=== PATIENT | female | born 1945 | race Hispanic/Latino ===

== ENCOUNTER → 2018-04-12 | Day surgery (SDC) | payer MEDICARE ==
[2018-04-11 08:53] LABS: BASOPHILS % 0.5 % (0.0-1.0); EOSINOPHILS # (AUTO) 0.2 (0.0-0.4); EOSINOPHILS % 1.8 % (0.0-6.0); HEMATOCRIT 40.7 % (34.2-44.1); HEMOGLOBIN 13.5 g/dL (12.0-16.0); LYMPHOCYTES # (AUTO) 2.6 (1.0-3.2); LYMPHOCYTES % 30.4 % (18.0-39.1); MEAN CORPUSCULAR HEMOGLOBIN 30.9 pg (28-32); MEAN CORPUSCULAR HGB CONC 33.2 g/dL (31-35); MEAN CORPUSCULAR VOLUME 93.1 fL (81-99); MONOCYTES # (AUTO) 0.5 (0.2-0.8); MONOCYTES % 6.3 % (4.4-11.3); NEUTROPHILS # (AUTO) 5.1 (2.1-6.9); NEUTROPHILS % 60.8 % (38.7-80.0); PLATELET COUNT 234 x10e3/uL (140-360); RED BLOOD COUNT 4.37 x10e6/uL (3.6-5.1); RED CELL DISTRIBUTION WIDTH 13.7 % (11.7-14.4)
[~2018-04-12] MED LIST: ALIGN4 MG PO; CALCIUM 600 +1 EAC8 PO; FENTANYL CITRATE/PF 100MCG/2 ML INJ ONE; FIBER1 GM PO; HYOSCYAMINE SULFATE 0.5 MG/ML AMP ONE; LINZESS PO; MEPERIDINE HCL INJ 50 MG/ML INJ ONE; MIDAZOLAM HCL 2 MG/2 ML VIAL ONE; OMEPRAZOLE PO; PROBIOTIC & AC1 EACH PO; PROPOFOL IV EMULSION 10 MG/ML 50 ML VIAL ONE; ULTRAM50 MG PO; ZOCOR20 MG PO
--- OUTSIDE RECORDS SUMMARY | 2018-04-12 07:03 | XMS REPORT ---
Author Author [facility] Address Unknown Phone Unavailable Care Team Providers Care Machine Fitter Name Role Phone CALVIN LUO Unavailable Unavailable Problems This patient has no known problems. Allergies, Adverse Reactions, Alerts This patient has no known allergies or adverse reactions. Medications This patient has no known medications. Results Test Description Test Time Test Comments Text Results Atomic Results Result Comments CHEST 2 VIEWS [place] [address] Patient Name: FUAD RICK MR #: [id number] : 1945 Age/Sex: 72/F Req # : [id number] [facility] Physician: Ordered by: CALVIN LUO MD Report #: [id number] Location: OR Room/Bed: Procedure: [id number] DX/CHEST 2 VIEWS Exam Date: 09/12/17 Exam Time: 0940 REPORT STATUS: Signed PROCEDURE: X-RAY CHEST, TWO VIEWS COMPARISON: None. INDICATIONS: PRE OPERATIVE CHEST X-RAY FOR VENTRAL HERNIA REPAIR FINDINGS: LUNGS: No consolidations or edema. PLEURA: No effusions or pneumothorax. HEART T MEDIASTINUM: The heart is within normal size-limits. Atherosclerotic calcification in the aorta. BONES T SOFT TISSUES: No acute findings. Degenerative spurring of the spine. CONCLUSION: No acute thoracic abnormality. Destiny Valdez D.O. Dictated by: Destiny Valdez D.O. on 09/12/2017 at 10: 08 Electronically approved by: Destiny Valdez D.O. on 09/12/2017 at 10: 08 Dictated By: DESTINY VALDEZ DO 1008 Transcribed By: MATTHEW on 09/12/17 1008 COPY TO: CALVIN LUO MD
--- NOTE | 2018-04-12 10:20 | Operative Report ---
DATE OF PROCEDURE: April 12, 2018 REFERRING PHYSICIAN: Dr. Shawanda Loza PROCEDURE PERFORMED: Colonoscopy and polypectomy with biopsies. INDICATIONS FOR COLONOSCOPY: Colorectal cancer screening, personal history of colon polyps. MEDICATION: Patient was done under MAC. Please see anesthesiologist's note. PROCEDURE: With the patient in the left lateral decubitus position, the flexible fiberoptic Olympus colonoscope was inserted into the rectum with ease and advanced all the way to the cecum. The mucosa overlying the cecal pouch was intensely erythematous and that was biopsied. Diverticular disease was scattered. It was more pronounced in the left colon. In the transverse colon, 2 polyps were snared and 1 polyp was hot biopsied. There was a focal area of diverticulitis in the proximal sigmoid colon. One polyp was hot biopsied from the sigmoid colon. The rectum grossly appeared to be within normal limits. The scope was then retroflexed into the distal rectum, and the area around the dentate line appeared to be within normal limits. The scope was then straightened out. It was subsequently withdrawn. Patient tolerated the procedure well. IMPRESSION 1. Cecal pouch, mucosa intensely erythematous and biopsied. 2. Transverse colon polyps times 3, 2 snared and 1 hot biopsied. 3. Diverticulosis. 4. Focal diverticulitis in sigmoid colon. 5. Sigmoid colon polyp, hot biopsied. PLAN: Follow up histology. Initiate Flagyl 500 mg 1 p.o. q.6 h. times 14 days and Levaquin 500 mg 1 p.o. daily times 14 days. Patient will need a followup colonoscopy in 3 years. Job#: [id number] RI cc:SHAWANDA LOZA MD
== END | disposition home or self-care (01) ==
LOC: OR 07:02
PROVIDERS: ATTEND Internal Medicine Gastroenterology
DX: Z12.11 Encounter for screening for malignant neoplasm of colon (principal); D12.3 Benign neoplasm of transverse colon; D12.5 Benign neoplasm of sigmoid colon; K63.89 Other specified diseases of intestine; K57.32 Diverticulitis of large intestine without perforation or abscess without bleeding; K58.9 Irritable bowel syndrome, unspecified; K59.00 Constipation, unspecified; K21.9 Gastro-esophageal reflux disease without esophagitis; R03.0 Elevated blood-pressure reading, without diagnosis of hypertension; E78.5 Hyperlipidemia, unspecified; M19.90 Unspecified osteoarthritis, unspecified site; I44.0 Atrioventricular block, first degree; F17.210 Nicotine dependence, cigarettes, uncomplicated; Z01.810 Encounter for preprocedural cardiovascular examination; Z01.812 Encounter for preprocedural laboratory examination; Z68.33 Body mass index [BMI] 33.0-33.9, adult; Z87.01 Personal history of pneumonia (recurrent)
CPT/HCPCS: 36415; 45380; 45384; 45385; 85025; 93005; J1980; J2175; J2250; 45378

== ENCOUNTER 2018-09-08 09:28 | Emergency (ER) | payer MEDICARE ==
[~2018-09-08] VITALS: Ht 162.6 cm; Wt 104.3 kg
[~2018-09-08 09:28] MED LIST changes: -FENTANYL CITRATE/PF 100MCG/2 ML INJ ONE; -HYOSCYAMINE SULFATE 0.5 MG/ML AMP ONE; -MEPERIDINE HCL INJ 50 MG/ML INJ ONE; -MIDAZOLAM HCL 2 MG/2 ML VIAL ONE; -PROPOFOL IV EMULSION 10 MG/ML 50 ML VIAL ONE
--- OUTSIDE RECORDS SUMMARY | 2018-09-08 09:32 | XMS REPORT ---
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
--- OUTSIDE RECORDS SUMMARY | 2018-09-08 09:32 | XMS REPORT ---
Author Author Paty Grewal [facility] e[employer] Address Unknown Phone Unavailable Care Team Providers Care Athletics Teacher Name Role Phone Paty Grewal Unavailable Allergies, Adverse Reactions, Alerts Substance Reaction Event Type N.K.D.A. 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 Z79.891 Active Medications Medication Code System Code Instructions Start Date End Date Status Dosage Align ND 09304888460 4 MG Orally once a day Active 1 capsule Omeprazole NDC 09157304857 40 MG Orally Once a day Active 1 capsule Glucosamine Chondr 500 Complex NDC 69566170890 Orally once a day Active 1 capsule Simvastatin NDC 35168135887 20 MG Orally Once a day Active 1 tablet in the evening Motrin NDC 0 300 MG Orally Active as directed Tramadol NDC 0 50 mg orally every 4-6 hours prn pain Active one tab Voltaren Gel NDC 0 1% Transdermal Four times a day Active apply to affected area Tylenol Arthritis Pain NDC 18782594837 650 MG Orally prn Active 2 tablets as needed Albuterol Sulfate NDC 08544842977 Active not defined Vital Signs Date/Time: February 24, 2018 BMI 32.61 Index Weight 190 lbs Height 64 in Temperature 97.8 F Cardiac Monitoring Heart Rate 68 /min Blood Pressure Diastolic 78 mm Hg Blood Pressure Systolic 128 mm Hg Results Name Result Date Reference Range Unit Abnormality Flag PAIN MGMT,TRICYCLIC ANTI DEPRESS,QN,W/medMATCH,U ----medMATCH Amitriptyline CONSISTENT 20180224 ----Nortriptyline NEGATIVE 20180224 <100 ng/mL ----medMATCH Nortriptyline CONSISTENT 20180224 ----Prescribed Drug 1 Tramadol 20180224 ----Amitriptyline NEGATIVE 74346630 <100 ng/mL PAIN MGMT, GABAPENTIN, QN,W/medMATCH,U ----Prescribed Drug 1 Tramadol 20180224 ----medMATCH Gabapentin CONSISTENT 20180224 ----Gabapentin NEGATIVE 68705778 <1000 ng/mL PAIN MGMT, FENTANYL, QN,W/medMATCH,U ----medMATCH Norfentanyl CONSISTENT 20180224 ----Prescribed Drug 1 Tramadol 20180224 ----Fentanyl NEGATIVE 26323111 <0.5 ng/mL ----medMATCH Fentanyl CONSISTENT 20180224 ----Norfentanyl NEGATIVE 80425744 <0.5 ng/mL PAIN MGMT, CARISOPRODOL METAB,QN,W/medMATCH,U ----Meprobamate NEGATIVE 68504620 <1000 ng/mL ----medMATCH Meprobamate CONSISTENT 20180224 ----Prescribed Drug 1 Tramadol 20180224 ZOLPIDEM, QUANTITATIVE, URINE ----ZOLPIDEM METABOLITE NEGATIVE 14589659 <5 ng/mL ----ZOLPIDEM NEGATIVE 93352792 <5 ng/mL PAIN MANAGEMENT PROFILE 1 W/CONF, W/DL, URINE ----Prescribed Drug 1 Tramadol 20180224 ----Creatinine 131.7 79255619 > or=20.0 mg/dL ----pH 6.50 06853215 4.5 - 9.0 ----medMATCH Barbiturates CONSISTENT 20180224 ----Benzodiazepines NEGATIVE 77672087 <100 ng/mL ----Oxycodone NEGATIVE 31673483 <100 ng/mL ----medMATCH Opiates CONSISTENT 20180224 ----Oxidant NEGATIVE 24511628 <200 mcg/mL ----Opiates NEGATIVE 59035460 <100 ng/mL ----Amphetamines NEGATIVE 26925872 <500 ng/mL ----medMATCH Methadone Metab CONSISTENT 20180224 ----medMATCH Amphetamines CONSISTENT 20180224 ----Methadone Metabolite NEGATIVE 18695299 <100 ng/mL ----Barbiturates NEGATIVE 54962436 <300 ng/mL ----medMATCH Phencyclidine CONSISTENT 20180224 ----medMATCH Benzodiazepines CONSISTENT 20180224 ----medMATCH Oxycodone CONSISTENT 20180224 ----Marijuana Metabolite NEGATIVE 23602718 <20 ng/mL ----Phencyclidine NEGATIVE 87714466 <25 ng/mL ----medMATCH Marijuana Metab CONSISTENT 20180224 ----Cocaine Metabolite NEGATIVE 03605580 <150 ng/mL ----medMATCH Cocaine Metab CONSISTENT 20180224 PAIN MGMT, TRAMADOL, QN,W/medMATCH,U ----medMATCH Tramadol INCONSISTENT 20180224 ----Tramadol NEGATIVE 58026929 <100 ng/mL ----medMATCH Desmethyltram INCONSISTENT 20180224 ----Desmethyltramadol NEGATIVE 24685796 <100 ng/mL ----Prescribed Drug 1 Tramadol 20180224 PAIN MGMT, PREGABALIN, QN,W/medMATCH,U ----medMATCH Pregabalin CONSISTENT 20180224 ----Pregabalin NEGATIVE 48723125 <1000 ng/mL ----Prescribed Drug 1 Tramadol 20180224 Summary Purpose eClinicalWorks Submission
--- OUTSIDE RECORDS SUMMARY | 2018-09-08 09:32 | XMS REPORT ---
Author Author Fred Navas Organization [employer] Address Unknown Phone Unavailable Care Team Providers Care Stonework Supervisor Name Role Phone Fred Navas CP Unavailable [...]
--- OUTSIDE RECORDS SUMMARY | 2018-09-08 09:32 | XMS REPORT ---
Author Author Paty Grewal Organization [employer] Address Unknown Phone Unavailable Care Team Providers Care Cardiac Rehabilitation Program Director Name Role Phone Paty Grewal CP Unavailable Allergies, Adverse Reactions, Alerts Substance Reaction Event Type N.K.D.A. 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 Active Assessment Muscle pain M79.1 Active Medications Medication Code System Code Instructions Start Date End Date Status Dosage Albuterol Sulfate [facility] [address]-24 Active not defined Tramadol NDC 0 50 mg orally every 4-6 hours prn pain Active one tab Omeprazole [facility] [address]-05 40 MG Orally Once a day Active [address] [facility] [address]-63 20 MG Orally Once a day Active 1 tablet in the evening Glucosamine Chondr [address] [facility] [address] Orally once a day Active 1 [place] [address]-71 650 MG Orally prn Active 2 tablets as needed Voltaren Gel NDC 0 1% Transdermal Four times a day Active apply to affected area Align [facility] [address] 4 MG Orally once a day Active 1 capsule Vital Signs Date/Time: Aug 19, 2017 BMI 34.01 Index Weight 192 lbs Height 63 in Temperature 98.1 F Cardiac Monitoring Heart Rate 64 /min Blood Pressure Diastolic 66 mm Hg Blood Pressure Systolic 128 mm Hg Results No Known Results Summary Purpose eClinicalWorks Submission
--- OUTSIDE RECORDS SUMMARY | 2018-09-08 09:32 | XMS REPORT | Continuity of Care Document ---
Author Author [facility] Interface Address Unknown Phone Unavailable Problems Problem Status Onset Date Classification Date Reported Comments Source Body mass index 30+ - obesity 05/17/2018 Diagnosis 05/17/2018 [facility] Elevated blood-pressure reading without diagnosis of hypertension 05/17/2018 Diagnosis 05/17/2018 [facility] Acute urticaria 05/17/2018 Diagnosis 05/17/2018 [facility] Cigarette smoker 05/17/2018 Diagnosis 05/17/2018 [facility] Body Mass Index 30+ - Obesity 05/17/2018 Problem 05/17/2018 [facility] Acute Urticaria 05/17/2018 Problem 05/17/2018 [facility] Elevated Blood-pressure Reading without Diagnosis of Hypertension 05/17/2018 Problem 05/17/2018 [facility] Cigarette Smoker 05/17/2018 Problem 05/17/2018 [facility] Acute bronchitis 11/01/2017 Diagnosis 11/02/2017 [facility] Acute upper respiratory infection 04/26/2017 Diagnosis 04/26/2017 [facility] Pain in throat 04/26/2017 Diagnosis 04/26/2017 [facility] Feeling feverish 04/26/2017 Diagnosis 04/26/2017 [facility] Acute lower respiratory tract infection 12/22/2016 Diagnosis 12/22/2016 [facility] Acute pharyngitis 12/22/2016 Diagnosis 12/22/2016 [facility] Muscle pain Active Problem 03/07/2018 [facility] Primary osteoarthritis, left ankle and foot Active Problem 03/07/2018 Xander Navas Back pain Active Problem 03/07/2018 Xander Navas Osteoarthritis of spine at multiple levels Active Problem 03/07/2018 Xander Navas [facility] use of opiate analgesic Active Diagnosis 03/02/2018 Xander Navas Medications Medication Details Route Status Patient Instructions Ordering Provider Order Date Source Albuterol Sulfate not defined NA Active [facility] Tramadol one tab orally Active 50 mg orally every 4-6 hours prn pain [facility] Omeprazole 1 capsule Orally Active 40 MG Orally Once a day [facility] Simvastatin 1 tablet in the evening Orally Active 20 MG Orally Once a day [facility] Navsa Glucosamine Chondr 500 Complex 1 capsule Orally Active Orally once a day [facility] Tylenol Arthritis Pain 2 tablets as needed Orally Active 650 MG Orally prn [facility] Voltaren Gel apply to affected area Transdermal Active 1% Transdermal Four times a day [facility]as Align 1 capsule Orally Active 4 MG Orally once a day [facility] Align 1 capsule Orally Active 4 MG Orally once a day [facility] Omeprazole 1 capsule Orally Active 40 MG Orally Once a day [facility] Glucosamine Chondr 500 Complex 1 capsule Orally Active Orally once a day [facility] Martinser Simvastatin 1 tablet in the evening Orally Active 20 MG Orally Once a day [facility] Motrin as directed Orally Active 300 MG Orally [facility] Tylenol Arthritis Pain 2 tablets as needed Orally Active 650 MG Orally prn [facility]as Albuterol Sulfate not defined NA Active [facility] X[facility] Navas Brompheniramine Maleate 0.4 MG/ML / Dextromethorphan Hydrobromide 2 MG/ML / Pseudoephedrine Hydrochloride 6 MG/ML Oral Solution [Bromfed DM] Bromfed DM 2 mg-30 mg-10 mg/5 mL syrup Take 5 mL every 6-8 hours by oral route as needed for 6 days. Active [facility] Omeprazole 20 MG Delayed Release Oral Capsule omeprazole 20 mg capsule,delayed release TK ONE C PO D Active [facility] Simvastatin 20 MG Oral Tablet simvastatin 20 mg tablet TK 1 T PO QD Active [facility] Simvastatin 40 MG Oral Tablet simvastatin 40 mg tablet TK 1 T PO QD IN THE EVENING Active [facility] Acetaminophen 300 MG / Codeine Phosphate 30 MG Oral Tablet acetaminophen 300 mg-codeine 30 mg tablet TK 1 TO 2 TS PO Q 4 TO 6 H PRN P Active [facility] Albuterol 0.83 MG/ML Inhalant Solution albuterol sulfate 2.5 mg/3 mL (0.083 %) solution for nebulization Inhale 3 mL 3 times a day by nebulization route as needed. Active [facility] Azithromycin 250 MG Oral Tablet azithromycin 250 mg tablet TAKE 2 TABLETS (500 MG) BY ORAL ROUTE ONCE DAILY FOR 1 DAY THEN 1 TABLET (250 MG) BY ORAL ROUTE ONCE DAILY FOR 4 DAYS Active [facility] benzonatate 200 MG Oral Capsule benzonatate 200 mg capsule Take 1 capsule 3 times a day by oral route as needed. Active [facility] 0.5 ML influenza A virus A/[place] (H1N1) antigen 0.12 MG/ML / influenza A virus A/[place] (H3N2) antigen 0.12 MG/ML / influenza B virus B/[place] antigen 0.12 MG/ML Prefilled Syringe [Fluzone [id number]] Fluzone High-Dose [id number] (PF) 180 mcg/0.5 mL intramuscular syringe ADM 0.5ML IM UTD Active [facility] tramadol hydrochloride 50 MG Oral Tablet tramadol 50 mg tablet TK 1 T PO BID Active [facility] Diclofenac Sodium 0.01 MG/MG Topical Gel [Voltaren] Voltaren 1 % topical gel ROSIO AA QID Active [facility] Triamcinolone Acetonide 1 MG/ML Topical Cream triamcinolone acetonide 0.1 % topical cream APPLY A THIN LAYER TO THE AFFECTED AREA(S) BY TOPICAL ROUTE 2 TIMES PER DAY X 7 DAYS Active [facility] Amoxicillin 875 MG Oral Tablet amoxicillin 875 mg tablet Take 1 tablet every 12 hours by oral route as directed for 10 days. Active [facility] 200 ACTUAT Albuterol 0.09 MG/ACTUAT Metered Dose Inhaler [ProAir] ProAir HFA 90 mcg/actuation aerosol inhaler Inhale 2 puffs every 4-6 hours by inhalation route as needed. Active [facility] Allergies, Adverse Reactions, Alerts Substance Category Reaction Severity Reaction type Status Date Reported Comments Source N.K.D.A. Adverse Reaction Info Not Available Adverse Reaction Active 02/24/2018 [facility] Navas Immunizations Immunization Date Given Site Status Last Updated Comments Source influenza, unspecified formulation 08/14/2017 completed [facility] influenza, injectable, quadrivalent 2016 completed [facility] Tdap 11/14/2008 completed [facility] Results Order Name Results Value Reference Range Date Interpretation Comments Source Influenza A negative 11/01/2017 [facility] Influenza B negative 11/01/2017 [facility] Influenza A negative 04/26/2017 [facility] Influenza B negative 04/26/2017 [facility] RESULT negative 04/26/2017 [facility] SWAB LOCATION Left and Right tonsillar pillars 04/26/2017 [facility] Influenza A negative 12/22/2016 [facility] Influenza B negative 12/22/2016 [facility] RESULT negative 12/22/2016 [facility] SWAB LOCATION Left and Right tonsillar pillars 12/22/2016 [facility] Vital Signs Vital Sign Value Date Comments Source Diastolic (mm Hg) 60 05/17/2018 [facility] Height 64 05/17/2018 [facility] Systolic (mm Hg) 128 05/17/2018 [facility] Weight 185 05/17/2018 [facility] Weight 190 02/24/2018 [facility] Nav[facility] Height 64 02/24/2018 [facility] Nav[facility] Temperature Oral (F) 97.8 F 02/24/2018 [facility] Nav[facility] Heart Rate 68 02/24/2018 [facility] Navas Diastolic (mm Hg) 78 02/24/2018 [facility] Nav[facility] Systolic (mm Hg) 128 02/24/2018 Xander Navas Diastolic (mm Hg) 74 11/01/2017 [facility] Height 64 11/01/2017 [facility] Systolic (mm Hg) 130 11/01/2017 [facility] Weight 185 11/01/2017 [facility] Weight 192 08/19/2017 Xander Navas Height 63 08/19/2017 Xander Navas Temperature Oral (F) 98.1 F 08/19/2017 [facility] Heart Rate 64 08/19/2017 [facility] Nav[facility] Diastolic (mm Hg) 66 08/19/2017 Xander Navas Systolic (mm Hg) 128 08/19/2017 Xander Navas Diastolic (mm Hg) 80 04/26/2017 [facility] Height 64 04/26/2017 [facility] Systolic (mm Hg) 122 04/26/2017 [facility] Weight 185 04/26/2017 [facility] Diastolic (mm Hg) 88 12/22/2016 [facility] Height 64 12/22/2016 [facility] Systolic (mm Hg) 136 12/22/2016 [facility] Weight 185 12/22/2016 [facility] Encounters Location Location Details Encounter Type Encounter Number Reason For Visit Attending Provider ADM Date DC Date Status Source [place] - [facility] - [id number] Ross-C: [address] [place] [address], Ph. [id number] Vikash Jena 12/22/2016 [facility] [place] [facility] - [id number] Vikash Bella, PANTOGRAPH I ENGRAVER-C: [address] [place] [address], Ph. [id number] Vikash Bella 04/26/2017 [facility] [place] [facility] - [id number] Jessiejulieta Nance, PANTOGRAPH I ENGRAVER-C: [address] [place] [address], Ph. [id number] Jessie Nance 11/01/2017 [facility] [place] - [facility] - [id number] Jessie Nance, PANTOGRAPH I ENGRAVER-C: [address] [place] [address], Ph. [id number] Jessie Nance 05/17/2018 [facility] Procedures Procedure Code Date Perfomer Comments Source mammogram, screening 12/22/2016 [facility] Hysterectomy [facility]
--- OUTSIDE RECORDS SUMMARY | 2018-09-08 09:33 | XMS REPORT | Encounter Summary ---
Author Organization Unknown Address [address] [place] [address] Phone [phone] Care Team Providers Care Feature Writer Name Role Phone Shawanda Garcia 3 [phone] Reason for Visit Medical Complaint Instructions 1. Acute bronchitis bronchitis: care instructions amoxicillin 875 mg tablet ProAir HFA 90 mcg/actuation aerosol inhaler Bromfed DM 2 mg-30 mg-10 mg/5 mL syrup rapid flu (A+B) call back, wheezing 2. Cigarette smoker Discussion Note Pt is in NAD; Verbalizes understanding of all instructions with no questions at this time. Plan of Care Patient Instructions Start Bromfed DM for cough. Start ProAir Inhalers 2 puffs every 4-6 hrs as needed for shortness of breath/wheezing. Alternate with albuterol nebulizer as directed. If no improvement of symptoms in 4-5 days, start antibiotics as directed. Take medications as prescribed and follow up with a PCP within 2-3 if symptoms worsen as discussed. In case of emergency call 911 or go to nearest ER. I recommend smoking cessation. Reminders Provider Appointments None recorded. Lab Rapid Flu (A+B) 11/01/2017 [facility] Referral None recorded. Procedures None recorded. Surgeries None recorded. Imaging None recorded. Medications Name Start Date amoxicillin 875 mg tablet Take 1 tablet every 12 hours by oral route as directed for 10 days. Bromfed DM 2 mg-30 mg-10 mg/5 mL syrup Take 5 mL every 6-8 hours by oral route as needed for 6 days. omeprazole 20 mg capsule,delayed release TK ONE T PO QD ProAir HFA 90 mcg/actuation aerosol inhaler Inhale 2 puffs every 4-6 hours by inhalation route as needed. simvastatin 20 mg tablet TK 1 T PO QD Medications Administered None recorded. Vitals Height Weight BMI Blood Pressure 5 ft 4 in 185 lbs 31.8 kg/m2 130/74 mm[Hg] Lab Results Date Name Specimen Result Interpretation Description Value Range Status Address Rapid Flu (A+B) Influenza a negative [facility]: [address] [facility] Influenza B negative [facility]: [address] [facility] Allergies Code Code System Name Reaction Severity Status Onset NKDA Problems None recorded. Procedures Date Name Performed by Hysterectomy Information not available Information not available Vaccine List Vaccine Type influenza, injectable, quadrivalent 2016 Tdap 11/14/2008 Social History Smoking Status Current Every Day Smoker Past Encounters 11/01/2017 Acute Bronchitis; Cigarette Smoker Jessie Goyo, [facility]-C: [address] [place] [address], Ph. History of Present Illness Cough Reported By: Patient HPI: Location: chest, nasal/sinus. Quality: congested, dry cough. Duration: 4 days. Severity: moderate. Onset/Timing: gradual. Context: no sick contacts, no foreign travel, smoker. Modifying factors: ; Bromfed DM and albuterol neb [place] with mild relief. Associated Symptoms: no sputum production, no sweats, no significant weight gain, no significant weight loss, no morning cough, no sore throat, no vomiting, no diarrhea, no rash, no nausea, no fever/chills, no muscle aches, no headache, shortness of breath, wheezing; post nasal drip, moderate chest congestion, and persistent dry cough Review of Systems:ROS as noted in the HPI Review of Systems Basic Reported By: Patient Physical Exam Adult Basic, Adult Female Complete Reported By: Patient Constitutional: General Appearance: healthy-appearing, well-nourished, well-developed. Level of Distress: NAD. Ambulation: ambulating normally Psychiatric: Mental Status: active and alert Eyes: Lids and Conjunctivae: non-injected, no discharge, no pallor Vmm-Cioa-Drhhp-Throat: Ears: no lesions on external ear, no outer ear tenderness, EACs clear, TMs clear. Hearing: no hearing loss. Nose: no lesions on external nose, post nasal drip. Lips, Teeth, and Gums: no mouth or lip ulcers, no bleeding gums, poor dentition. Oropharynx: moist mucous membranes, no erythema, no exudates, tonsils not enlarged Neck: Lymph Nodes: no cervical LAD Lungs: Respiratory effort: no dyspnea, no tachypnea, no use of accessory muscles, no intercostal retractions. Auscultation: expiratory wheezing, wet rales/crackles Cardiovascular: Heart Auscultation: RRR, no murmurs Neurologic: Gait and Station: normal gait, normal station
--- OUTSIDE RECORDS SUMMARY | 2018-09-08 09:33 | XMS REPORT | Encounter Summary ---
Author Organization Unknown Address [address] [place] [address] Phone [phone] Reason for Visit Medical Complaint Instructions 1. Acute lower respiratory tract infection azithromycin 250 mg tablet benzonatate 200 mg capsule albuterol sulfate 2.5 mg/3 mL (0.083 %) solution for nebulization rapid flu (A+B) 2. Acute pharyngitis sore throat: care instructions rapid strep group A, throat Discussion Note Pt is aaox3 and in NAD; verbalizes understanding of all instructions and has no further questions at this time Plan of Care Patient Instructions Take medications as prescribed and discussed; follow up with your PCP within 2-3 days or sooner should symptoms worsen Reminders Provider Appointments None recorded. Lab Rapid Flu (A+B) 12/22/2016 [facility] Rapid Strep Group a, Throat 12/22/2016 [facility] Referral None recorded. Procedures None recorded. Surgeries None recorded. Imaging None recorded. Medications Name Start Date acetaminophen 300 mg-codeine 30 mg tablet TK 1 TO 2 TS PO Q 4 TO 6 H PRN P albuterol sulfate 2.5 mg/3 mL (0.083 %) solution for nebulization Inhale 3 mL 3 times a day by nebulization route as needed. azithromycin 250 mg tablet TAKE 2 TABLETS (500 MG) BY ORAL ROUTE ONCE DAILY FOR 1 DAY THEN 1 TABLET (250 MG) BY ORAL ROUTE ONCE DAILY FOR 4 DAYS benzonatate 200 mg capsule Take 1 capsule 3 times a day by oral route as needed. Fluzone High-Dose [id number] (PF) 180 mcg/0.5 mL intramuscular syringe ADM 0.5ML IM UTD omeprazole 20 mg capsule,delayed release TK 1 C PO QD simvastatin 20 mg tablet TK 1 T PO QD simvastatin 40 mg tablet TK 1 T PO QD IN THE EVENING tramadol 50 mg tablet TK 1 T PO BID Voltaren 1 % topical gel ROSIO AA QID Medications Administered None recorded. Vitals Height Weight BMI Blood Pressure 5 ft 4 in 185 lbs 31.8 136/88 Lab Results Date Name Result Description Value Range Status Rapid Flu (A+B) Influenza a negative Influenza B negative Rapid Strep Group a, Throat Result negative Swab Location Left and Right tonsillar pillars Allergies Name Reaction Severity Onset NKDA Problems None recorded. Procedures Date Name Performed by 12/22/2016 Mammogram, Screening Information not available Vaccine List Vaccine Type Tdap 11/13/2008 Social History Smoking Status Never Smoker Past Encounters 12/22/2016 Acute Lower Respiratory Tract Infection; Acute Pharyngitis Vikash Bella, [facility]-C: [address] [place] [address], Ph. History of Present Illness Cqqhwpe-Rlbym-Uln Reported By: Patient HPI: Quality: cannot identify. Duration: 2-3 days. Severity: subjective temperature, same. Onset/Timing: first recorded 3 days ago. Context: no tick/insect bites, no recent travel, no new medications, ill contacts. Associated Symptoms: no fever/chills, no rash, no lethargy, headache, muscle aches, cold symptoms, tired (fatigue), cough, nasal passage blockage (stuffiness). Modifying Factors nothing gives relief Review of Systems:ROS as noted in the HPI Review of Systems Basic Reported By: Patient Physical Exam Adult Basic, Adult Female Complete Reported By: Patient Constitutional: General Appearance: healthy-appearing, well-nourished, well-developed. Level of Distress: NAD. Ambulation: ambulating normally Psychiatric: Mental Status: active and alert. Orientation: to time, to place, to person Uek-Rnrf-Xaxoc-Throat: Ears: no lesions on external ear, no outer ear tenderness, EACs clear, TMs clear. Hearing: no hearing loss. Nose: no lesions on external nose, nares patent, no septal deviation, nasal passages clear, no sinus tenderness, nasal discharge--rhinorrhea, post nasal drip. Lips, Teeth, and Gums: no mouth or lip ulcers, no bleeding gums, normal dentition. Oropharynx: moist mucous membranes, no exudates, tonsils not enlarged, erythema Neck: Lymph Nodes: no cervical LAD, no supraclavicular LAD Lungs: Respiratory effort: no dyspnea, no tachypnea, no use of accessory muscles, no intercostal retractions. Auscultation: expiratory wheezing, wet rales/crackles, rales / crackles on the left, rales/crackles on the right Cardiovascular: Heart Auscultation: RRR, no murmurs Neurologic: Gait and Station: normal gait, normal station
--- OUTSIDE RECORDS SUMMARY | 2018-09-08 09:33 | XMS REPORT | Encounter Summary ---
Author Organization Unknown Address [address] [place] [address] Phone [phone] Reason for Visit Medical Complaint Instructions 1. Acute upper respiratory infection upper respiratory infection (cold): care instructions Bromfed DM 2 mg-30 mg-10 mg/5 mL syrup 2. Pain in throat rapid strep group A, throat 3. Feeling feverish rapid flu (A+B) Discussion Note: None recorded. Plan of Care Patient Instructions take bromfed as needed. it can cause drowsiness. do not drive will on this medication. follow up pcp advised to contact office in 4-5 days if not better. Reminders Provider Appointments None recorded. Lab Rapid Strep Group a, Throat 04/26/2017 [facility] Rapid Flu (A+B) 04/26/2017 [facility] Referral None recorded. Procedures None recorded. Surgeries None recorded. Imaging None recorded. Medications Name Start Date Bromfed DM 2 mg-30 mg-10 mg/5 mL syrup Take 10 mL every 4 hours by oral route as needed. omeprazole 20 mg capsule,delayed release TK ONE T PO QD simvastatin 20 mg tablet TK 1 T PO QD simvastatin 40 mg tablet TK 1 T PO QD IN THE EVENING Medications Administered None recorded. Vitals Height Weight BMI Blood Pressure 5 ft 4 in 185 lbs 31.8 kg/m2 122/80 mm[Hg] Lab Results Date Name Specimen Result Interpretation Description Value Range Status Address Rapid Flu (A+B) Influenza a negative [facility]: [address] [place] [address] Influenza B negative [facility]: [address] [place] [address] Rapid Strep Group a, Throat Result negative [facility]: [address] [place] [address] Swab Location Left and Right tonsillar pillars [facility]: [address] [place] [address] Allergies Code Code System Name Reaction Severity Onset NKDA Problems None recorded. Procedures Date Name Performed by Hysterectomy Information not available Information not available Vaccine List Vaccine Type influenza, injectable, quadrivalent 07/31/2016 Tdap 11/13/2008 Social History Smoking Status Never Smoker Past Encounters 04/26/2017 Acute Upper Respiratory Infection; Pain in Throat; Feeling Feverish Vikash Bella, [facility]-C: [address] [facility], [place] [address], Ph. History of Present Illness Gxhhp-Zywnsulguf-Igbqtix Reported By: Patient HPI: Location: head/sinuses, throat. Quality: productive cough, nasal/sinus congestion, dry cough. Duration: 3days. Severity: moderate. Onset/Timing: gradual. Context: no sick contacts, no foreign travel, non-smoker, allergies. Modifying factors: OTC medication. Associated Symptoms: no shortness of breath, no wheezing, no change in number of pillows needed to sleep at night, no sweats, no significant weight gain, no significant weight loss, no morning cough, no vomiting, no diarrhea, no rash, no nausea, no fever, no muscle aches, no headache, yellow sputum, sore throat Review of Systems:ROS as noted in the HPI Review of Systems Basic Reported By: Patient Physical Exam Adult Basic, Adult Female Complete Reported By: Patient Constitutional: General Appearance: healthy-appearing, well-nourished, well-developed. Level of Distress: NAD. Ambulation: ambulating normally Psychiatric: Mental Status: active and alert Eyes: Lids and Conjunctivae: non-injected, no discharge Vlt-Myjg-Usbkv-Throat: Ears: no lesions on external ear, no outer ear tenderness, EACs clear, TMs clear. Hearing: no hearing loss. Nose: no lesions on external nose, nasal discharge--purulent; congestion. Lips, Teeth, and Gums: no mouth or lip ulcers. Oropharynx: moist mucous membranes, no erythema, no exudates, tonsils not enlarged Neck: Neck: trachea midline. Lymph Nodes: no cervical LAD Lungs: Respiratory effort: no dyspnea, no tachypnea, no use of accessory muscles, no intercostal retractions. Auscultation: breath sounds normal Cardiovascular: Heart Auscultation: RRR, no murmurs
--- OUTSIDE RECORDS SUMMARY | 2018-09-08 09:33 | XMS REPORT | Encounter Summary ---
Author Organization Unknown Address [address] [place] [address] Phone [phone] Care Team Providers Care Labor Arbitrator Hearing Office Name Role Phone Shawanda Garcia 3 [phone] Reason for Visit Medical Complaint Instructions 1. Acute urticaria triamcinolone acetonide 0.1 % topical cream 2. Cigarette smoker stopping smoking: care instructions 3. Elevated blood-pressure reading without diagnosis of hypertension elevated blood pressure: care instructions 4. Body mass index 30+ - obesity body mass index: care instructions Discussion Note Pt is in NAD; Verbalizes understanding of all instructions with no questions at this time. Plan of Care Patient Instructions Stop calcium supplements. Take zyrtec or benadryl over the counter as per package insert for itching. Do not drive or operate machinery while on this medication. Use topical steroid as directed. Take medications as prescribed and follow up with a PCP or spinning room worker within 2-3 if symptoms worsen as discussed. In case of emergency: worsening swelling, difficulty breathing, or shortness of breath call 911 or go to nearest ER. Recommend monitor BP at home and document, bring BP log to PCP for review. Recommend follow a low sodium diet and exercise 30-45 mins/d 3-4 days a week. I recommend smoking cessation. Reminders Provider Appointments None recorded. Lab None recorded. Referral None recorded. Procedures None recorded. Surgeries None recorded. Imaging None recorded. Medications Name Start Date omeprazole 20 mg capsule,delayed release TK ONE C PO D simvastatin 20 mg tablet TK 1 T PO QD triamcinolone acetonide 0.1 % topical cream APPLY A THIN LAYER TO THE AFFECTED AREA(S) BY TOPICAL ROUTE 2 TIMES PER DAY X 7 DAYS Medications Administered None recorded. Vitals Height Weight BMI Blood Pressure 5 ft 4 in 185 lbs 31.8 kg/m2 (1) 130/70 mm[Hg] (2) 128/60 mm[Hg] Lab Results None recorded. Allergies Code Code System Name Reaction Severity Status Onset NKDA Problems Name Status Onset Date Source Body Mass Index 30+ - Obesity Active 05/17/2018 Acute Urticaria Active 05/17/2018 Elevated Blood-pressure Reading without Diagnosis of Hypertension Active 05/17/2018 Cigarette Smoker Active 05/17/2018 Procedures Date Name Performed by Hysterectomy Information not available Information not available Vaccine List Vaccine Type influenza, injectable, quadrivalent 2016 influenza, unspecified formulation 08/14/2017 Tdap 11/14/2008 Social History Smoking Status Current Every Day Smoker Past Encounters 05/17/2018 Acute Urticaria; Cigarette Smoker; Elevated Blood-pressure Reading without Diagnosis of Hypertension; Body Mass Index 30+ - Obesity Jessie Nance, [facility]-C: [address] [facility], [place] [address], Ph. History of Present Illness Eaxt-Zmblmzm-Xtala-Skin Lesion-Bite 1 Reported By: Patient HPI: Location: neck, chest, arms, legs. Quality: not painful, itchy, red, multiple, generalized. Severity: worsening, moderate. Duration: has noted for 1-2 weeks. Onset/Timing: gradual onset. Context: no new detergents or skin products, no one else with similar rash, no sting or bite, scratching; rash developed after re- starting calcium supplements. Aggravating factors: nothing makes it worse. Alleviating factors: nothing gives relief. Associated Symptoms: no fever/chills, no muscle aches, no headache, no cold symptoms, no nausea, no vomiting, no diarrhea, no urinary symptoms Note:
Review of Systems Basic Reported By: Patient Constitutional: Constitutional: no fever Eyes: Eyes: no eye complaints Aklr-Evzq-Enriv-Throat: Ears: no ear complaints. Nose: no nose/sinus problems. Mouth/Throat: no sore throat, no bleeding gums, no mouth complaints, no teeth problems Cardiovascular: Cardiovascular: no chest pain, no shortness of breath, no known heart murmur Respiratory: Respiratory: no cough, no wheezing, no shortness of breath Gastrointestinal: Gastrointestinal: no abdominal pain, no vomiting / diarrhea Genitourinary: Genitourinary: no urinary complaints, no discharge Musculoskeletal: Musculoskeletal: no muscle aches, no muscle weakness, no arthralgias/joint pain, no back pain Skin: Skin: no abnormal / changing mole, no jaundice, rash, itching Neurologic: Neurologic: no loss of consciousness, no weakness, no numbness, no seizures, no dizziness, no headaches Physical Exam Adult Basic, Adult Female Complete Reported By: Patient Constitutional: General Appearance: obese. Level of Distress: NAD. Ambulation: ambulating normally Psychiatric: Mental Status: active and alert. Orientation: to time, to place, to person Eyes: Lids and Conjunctivae: non-injected, no discharge Neck: Neck: supple. Lymph Nodes: no cervical LAD Lungs: Respiratory effort: no dyspnea, no tachypnea, no use of accessory muscles, no intercostal retractions. Auscultation: breath sounds normal Cardiovascular: Heart Auscultation: RRR, no murmurs Neurologic: Gait and Station: normal gait, normal station Skin: Inspection and palpation: rash
[2018-09-08] MEDS ORDERED: GABAPENTIN300 MG PO (10:21)
[2018-09-08] MEDS ORDERED: ROBAXIN-750750 MG PO (10:21)
== END 2018-09-08 10:32 | disposition home or self-care (01) ==
LOC: FSED 09:28
DX: M54.5 Low back pain (principal); S39.012A Strain of muscle, fascia and tendon of lower back, initial encounter; M54.16 Radiculopathy, lumbar region; X50.0XXA Overexertion from strenuous movement or load, initial encounter; Y92.008 Other place in unspecified non-institutional (private) residence as the place of occurrence of the external cause; M06.9 Rheumatoid arthritis, unspecified; Z87.891 Personal history of nicotine dependence
CPT/HCPCS: 99283

== ENCOUNTER 2019-03-08 16:51 | Outpatient (RCR) | payer MEDICARE ==
[~2019-03-08 16:51] MED LIST changes: +GABAPENTIN300 MG PO; +ROBAXIN-750750 MG PO
== END 2019-03-13 ==
LOC: PT 16:51
PROVIDERS: ATTEND Specialist
DX: M17.11 Unilateral primary osteoarthritis, right knee (principal); M72.2 Plantar fascial fibromatosis; M62.81 Muscle weakness (generalized); R26.2 Difficulty in walking, not elsewhere classified; M79.672 Pain in left foot; M79.671 Pain in right foot; M25.672 Stiffness of left ankle, not elsewhere classified; M25.671 Stiffness of right ankle, not elsewhere classified

== ENCOUNTER → 2019-04-13 | Outpatient (RCR) | payer MEDICARE | LOC: PT 03-14 16:51 | PROVIDERS: ATTEND Specialist | DX: M17.11 Unilateral primary osteoarthritis, right knee (principal); M72.2 Plantar fascial fibromatosis; M79.672 Pain in left foot; M79.671 Pain in right foot; M62.81 Muscle weakness (generalized); R26.2 Difficulty in walking, not elsewhere classified ==

== ENCOUNTER 2019-04-27 13:52 | Outpatient (RCR) | payer MEDICARE ==
[2019-05-25] MEDS ORDERED: PROBIOTIC & AC1 EACH PO (13:12)
== END 2019-05-13 ==
LOC: PT 13:52
PROVIDERS: ATTEND Specialist
DX: M17.11 Unilateral primary osteoarthritis, right knee (principal); M72.2 Plantar fascial fibromatosis

== ENCOUNTER → 2019-05-30 | Day surgery (SDC) | payer MEDICARE ==
[2019-05-25 13:52] LABS: BASOPHILS % 0.4 % (0.0-1.0); EOSINOPHILS # (AUTO) 0.1 (0.0-0.4); EOSINOPHILS % 1.7 % (0.0-6.0); HEMOGLOBIN 12.8 g/dL (12.0-16.0); LYMPHOCYTES # (AUTO) 2.8 (1.0-3.2); LYMPHOCYTES % 37.7 % (18.0-39.1); MEAN CORPUSCULAR VOLUME 93.9 fL (81-99); MONOCYTES # (AUTO) 0.6 (0.2-0.8); MONOCYTES % 7.4 % (4.4-11.3); NEUTROPHILS % 52.5 % (38.7-80.0); PLATELET COUNT 248 x10e3/uL (140-360); RED BLOOD COUNT 4.26 x10e6/uL (3.6-5.1); RED CELL DISTRIBUTION WIDTH 13.8 % (11.7-14.4)
[2019-05-25 14:07] LABS: ANION GAP 14.2 mmol/L (8-16); BLOOD UREA NITROGEN 16 mg/dL (7-26); BUN/CREATININE RATIO 21 (6-25); CALCIUM 9.4 mg/dL (8.4-10.2); CARBON DIOXIDE 25 mmol/L (22-29); CHLORIDE 104 mmol/L (98-107); CREATININE, SERUM 0.78 mg/dL (0.57-1.11); EST GLOMERULAR FILTRATION RATE > 60 ML/MIN (60-); GLUCOSE 102 mg/dL (74-118); POTASSIUM 4.2 mmol/L (3.5-5.1); SODIUM 139 mmol/L (136-145)
--- NOTE | 2019-05-25 14:07 | Diagnostic Imaging Report ---
EXAMINATION: CHEST 2 VIEWS INDICATION: Pre-op. COMPARISON: None FINDINGS: TUBES and LINES: None. LUNGS: Lungs are well inflated. Lungs are clear. There is no evidence of pneumonia or pulmonary edema. PLEURA: No pleural effusion or pneumothorax. HEART AND MEDIASTINUM: The cardiomediastinal silhouette is unremarkable. There are atherosclerotic calcifications within the aorta. BONES AND SOFT TISSUES: No acute osseous lesion. Soft tissues are unremarkable. UPPER ABDOMEN: No free air under the diaphragm. IMPRESSION: No acute radiographic abnormality. Signed by: Dr. Jen Burris MD on 05/25/2019 2:03 PM
[~2019-05-30] MED LIST changes: +ACETAMINOPHEN 1000 MG/100 ML IV ONE; +ACETAMINOPHEN/CODEINE 300MG - 30MG TAB ONE; +BACITRACIN 50,000 UNIT VIAL ONE; +BUPIVACAINE HCL 0.5% INJ 30 ML VIAL INJ ONE; +CEFAZOLIN SOD 1 GM/NS 50ML 100 ML IV ONE; +DEXAMETHASONE SOD PHOS INJ 4 MG/ML VIAL ONE; +FENTANYL CITRATE/PF 100MCG/2 ML INJ ONE; +LIDOCAINE HCL 2% LOCAL INJ 5 ML SDV VIAL INJ ONE; +MIDAZOLAM HCL 2 MG/2 ML VIAL ONE; +ONDANSETRON HCL INJ 2MG/ML 2ML 2 MG/ML VIAL ONE; +PROPOFOL IV EMULSION 10 MG/ML 20 ML VIAL ONE; +ROCURONIUM BROMIDE 10 MG/ML 5ML VIAL ONE; +SEVOFLURANE INHAL SOLN 250 ML PEN BTL ONE
--- OUTSIDE RECORDS SUMMARY | 2019-05-30 05:46 | XMS REPORT | Continuity of Care Document ---
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 03/02/2018 Xander Navas Medications Medication Details Route Status Patient Instructions Ordering Provider Order Date Source Gabapentin 300 Mg Capsule Bedtime Active Kirkpatrick 09/08/2018 [facility] Methocarbamol (Robaxin-750) 750 Mg Tablet Three Times A Day as needed for Pain Active Kirkpatrick 09/08/2018 [facility] Lactobac Cmb #3/Fos/Pantethine (Probiotic & Acidophilus Cap) 1 Each Capsule, 1 Tab Oral Daily Active 04/11/2018 [facility] Tramadol Hcl (Ultram) 50 Mg Tablet, 50 Mg Oral As Needed Active 04/11/2018 [facility] Bifidobacterium Infantis (Align) 4 Mg Capsule, 4 Mg Oral Daily Active 04/27/2016 [facility] Calcium Carb/Vit D3/Minerals (Calcium 600 + D Tablet) 1 Each Tablet, Oral Daily Active 04/27/2016 [facility] Guar Gum (Fiber) 1 Gm Tab.chew, Oral Daily Active 04/27/2016 [facility] Linzess , 90 Mg Oral Daily Active 04/27/2016 [facility] Align 1 capsule Orally Active 4 MG Orally once a day Car[facility] Xander Navas Omeprazole 1 capsule Orally Active 40 MG Orally Once a day Car[facility] Xander Navas Glucosamine Chondr 500 Complex 1 capsule Orally Active Orally once a day Car[facility] Xander Navas Simvastatin 1 tablet in the evening Orally Active 20 MG Orally Once a day Car[facility] Xander Navas Motrin as directed Orally Active 300 MG Orally Car[facility] Xander Navas Tramadol one tab orally Active 50 mg orally every 4-6 hours prn pain Car[facility] Xander Navas Voltaren Gel apply to affected area Transdermal Active 1% Transdermal Four times a day Carmina Xander Navas Tylenol Arthritis Pain 2 tablets as needed Orally Active 650 MG Orally prn [facility] Xander Navas Albuterol Sulfate not defined NA Active [facility] Xander Navas Albuterol Sulfate not defined NA Active [facility] Xander Navas Omeprazole 1 capsule Orally [...] 650 MG Orally prn Car[facility] Xander Navas Align 1 capsule Orally Active 4 MG Orally once a day Carmina Xander Martinser Acetaminophen 300 MG / Codeine Phosphate 30 [...] Active [facility] 0.5 ML influenza A virus A/ (H1N1) antigen 0.12 MG/ML / influenza A virus A/ (H3N2) antigen 0.12 MG/ML / influenza B virus B/Ransom antigen 0.12 MG/ML Prefilled Syringe [Fluzone [id number]] Fluzone High-Dose [id number] (PF) 180 mcg/0.5 mL intramuscular syringe ADM 0.5ML IM UTD Active [facility] Omeprazole 20 MG Delayed Release Oral Capsule omeprazole 20 mg capsule,delayed release TK ONE C PO D Active [facility] Simvastatin 20 MG Oral Tablet simvastatin 20 mg tablet TK 1 T PO QD Active [facility] Simvastatin 40 MG Oral Tablet simvastatin 40 mg tablet TK 1 T PO QD IN THE EVENING Active [facility] tramadol hydrochloride 50 MG Oral Tablet tramadol 50 mg tablet TK 1 T PO BID Active [facility] Diclofenac Sodium 0.01 MG/MG Topical Gel [Voltaren] Voltaren 1 % topical gel ROSIO AA QID Active [facility] Amoxicillin 875 MG Oral Tablet amoxicillin 875 mg tablet Take 1 tablet every 12 hours by oral route as directed for 10 days. Active [facility] Brompheniramine Maleate 0.4 MG/ML / Dextromethorphan Hydrobromide 2 MG/ML / Pseudoephedrine Hydrochloride 6 MG/ML Oral Solution [Bromfed DM] Bromfed DM 2 mg-30 mg-10 mg/5 mL syrup Take 5 mL every 6-8 hours by oral route as needed for 6 days. Active [facility] 200 ACTUAT Albuterol 0.09 MG/ACTUAT Metered Dose Inhaler [ProAir] ProAir HFA 90 mcg/actuation aerosol inhaler Inhale 2 puffs every 4-6 hours by inhalation route as needed. Active [facility] Triamcinolone Acetonide 1 MG/ML Topical Cream triamcinolone acetonide 0.1 % topical cream APPLY A THIN LAYER TO THE AFFECTED AREA(S) BY TOPICAL ROUTE 2 TIMES PER DAY X 7 DAYS Active [facility] Omeprazole Bedtime Active [facility] Simvastatin (Zocor) 20 Mg Tablet Bedtime Active [facility] Allergies, Adverse Reactions, Alerts Substance Category Reaction [...] Left and Right tonsillar pillars 12/22/2016 [facility] Pathology Reports No Data Provided for This Section Diagnostic Reports No Data Provided for This Section Consultation Notes No Data Provided for This Section Discharge Summaries No Data Provided for This Section History and Physicals No Data Provided for This Section Vital Signs Vital Sign Value Date Comments [...] Date Status Source [place] - [facility] - [id number] RACHEL Pena-C: [address] [place] [address], Ph. [id number] Vikash Bella 12/22/2016 [facility] [place] - [facility] - [id number] BELEN PenaP-C: [address] [place] [address], Ph. [id number] Vikash Bella 04/26/2017 [facility] [place] - [facility] - [id number] BELEN GarciaP-C: [address] [place] [address], Ph. [id number] Jessie Nance 11/01/2017 [facility] [place] - [facility] - [id number] Nance, [facility]-C: [address] [place] [address], Ph. [id number] Jessie Nance 05/17/2018 [facility] Departed Emergency Room [id number] PHILLIP KIRKPATRICK MD 09/08/2018 09/08/2018 [facility] Discharged Recurring [id number] ELENA MEYERS MD 03/08/2019 03/13/2019 [facility] Procedures Procedure Code Date Perfomer Comments Source mammogram, screening 12/22/2016 [facility] Hysterectomy [facility] Assessment and Plan No Data Provided for This Section Plan of Care Plan of Care Date Source Prescriptions See Medication Section 03/14/2019 [facility] Social History Social History Date Source No social history information available. 03/14/2019 [facility] Smoking Status Current Every Day Smoker 12/23/2016 [facility] Family History No Data Provided for This Section Advance Directives Order Name Results Value Date Source Advance Directives Advance Directives Directive Response Recorded Date/Time Does the patient have an advance directive? No 05/19/12 2:10pm If yes, is advance directive on file with [facility]? No 05/19/12 2:10pm If not on file with [facility] will patient provide a copy? No 05/19/12 2:10pm Do you have a Directive to Physician? No 02/07/19 9:02am Do you have a Medical Power of Chairman Ceo? No 02/07/19 9:02am Do you have an out of hospital Do Not Resuscitate Order? No 02/07/19 9:02am Do you have any special needs we should be aware of? No 02/07/19 9:02am Do you have a support person here with you today? Yes 02/22/19 1:33pm Did patient receive Notice of Privacy Practices? No 02/07/19 9:02am Did patient receive patient rights and responsibilities? No 02/07/19 9:02am 03/14/2019 [facility] Functional Status No Data Provided for This Section
[2019-05-30 10:15] VITALS: BP 148/71
--- NOTE | 2019-05-30 12:36 | Operative Report ---
DATE OF PROCEDURE: 05/30/2019 SURGEON: Armen Pruett MD PREOPERATIVE DIAGNOSIS: Right inguinal hernia. POSTOPERATIVE DIAGNOSIS: Right inguinal hernia. PROCEDURE: Repair of right inguinal hernia with mesh. TORPEDO SHOOTER: None. ANESTHESIA: General. INDICATIONS AND FINDINGS: The patient is a 73-year-old female, who presented with complaints of bulge in the right groin. Surgery based on an indirect right inguinal hernia. TECHNIQUE: After adequate general anesthesia, the patient in supine position. The right groin area was prepped and draped in sterile fashion with ChloraPrep solution. Transverse incision was made and carried down through subcutaneous tissue and Kayleigh's fascia until the external oblique fascia was seen. This was opened in direction of its fibers through the external ring. The ilioinguinal nerve was identified and preserved. There was a herniated mass as well as round ligament. The round ligament was dissected free and excised and ligated with 2-0 Vicryl. Herniated mass was dissected free from the surrounding tissues down to the transversalis fascia, then reduced beneath the transversalis fascia appeared to be an indirect right inguinal hernia. A large Prolene mesh hernia system, which had been soaked in antibiotic solution was placed through the hernia defect with the underlay patch opened up in the preperitoneal space. Onlay patch was laid over the floor of the inguinal canal. The onlay patch was sutured to the shelving edge of inguinal ligament laterally and conjoint tendon medially. This was done with interrupted sutures of 0-prolene. Care was taken not to entrap the general femoral or iliohypogastric nerves. Once the mesh was in place, the wound was infiltrated with 0.5% Marcaine. The external oblique fascia was then closed with running suture of 2-0 Vicryl. Care was taken not to entrap the ilioinguinal nerve. Kayleigh's fascia was closed with running suture of 3-0 Vicryl. Skin was closed with a running subcuticular suture of 4-0 Vicryl. Dermabond and sterile dressing were applied. The patient tolerated the procedure well. Estimated blood loss was 5 mL. There were no complications. All counts were correct. The patient was taken to the recovery room in satisfactory condition. MD EL Barnes/JOVITAL /[id number] cc: Shawanda Garcia MD
== END | disposition home or self-care (01) ==
LOC: OR 05:41
PROVIDERS: ATTEND Surgery
DX: K40.90 Unilateral inguinal hernia, without obstruction or gangrene, not specified as recurrent (principal); K21.9 Gastro-esophageal reflux disease without esophagitis; F17.210 Nicotine dependence, cigarettes, uncomplicated; Z88.8 Allergy status to other drugs, medicaments and biological substances; Z01.810 Encounter for preprocedural cardiovascular examination; Z01.812 Encounter for preprocedural laboratory examination; Z01.818 Encounter for other preprocedural examination; Z68.34 Body mass index [BMI] 34.0-34.9, adult
CPT/HCPCS: 36415; 49505; 71046; 80048; 85025; 93005; C1781; J0131; J0690; J1100; J2001; J2250; J2405; J2704; J3010

== ENCOUNTER → 2021-04-04 | Day surgery (SDC) | payer MEDICARE ==
[2021-04-02 08:55] LABS: BASOPHILS % 0.5 % (0.0-1.0); EOSINOPHILS # (AUTO) 0.1 (0.0-0.4); EOSINOPHILS % 1.5 % (0.0-6.0); HEMATOCRIT 43.4 % (34.2-44.1); HEMOGLOBIN 14.1 g/dL (12.0-16.0); LYMPHOCYTES # (AUTO) 2.9 (1.0-3.2); LYMPHOCYTES % 34.7 % (18.0-39.1); MEAN CORPUSCULAR HEMOGLOBIN 29.7 pg (28-32); MEAN CORPUSCULAR HGB CONC 32.5 g/dL (31-35); MEAN CORPUSCULAR VOLUME 91.6 fL (81-99); MONOCYTES # (AUTO) 0.4 (0.2-0.8); MONOCYTES % 4.8 % (4.4-11.3); NEUTROPHILS # (AUTO) 4.8 (2.1-6.9); NEUTROPHILS % 58.3 % (38.7-80.0); PLATELET COUNT 247 x10e3/uL (140-360); RED BLOOD COUNT 4.74 x10e6/uL (3.6-5.1); RED CELL DISTRIBUTION WIDTH 14.1 % (11.7-14.4)
[~2021-04-04] MED LIST changes: -ACETAMINOPHEN 1000 MG/100 ML IV ONE; -ACETAMINOPHEN/CODEINE 300MG - 30MG TAB ONE; -BACITRACIN 50,000 UNIT VIAL ONE; -BUPIVACAINE HCL 0.5% INJ 30 ML VIAL INJ ONE; +CALCIUM PO; -CEFAZOLIN SOD 1 GM/NS 50ML 100 ML IV ONE; -DEXAMETHASONE SOD PHOS INJ 4 MG/ML VIAL ONE; +GINGER ROOT550 MG PO; +HYOSCYAMINE SULFATE 0.5 MG/ML INJ ONE; +OMEGA 3 FISH O1 EACH PO; -ONDANSETRON HCL INJ 2MG/ML 2ML 2 MG/ML VIAL ONE; -ROCURONIUM BROMIDE 10 MG/ML 5ML VIAL ONE; -SEVOFLURANE INHAL SOLN 250 ML PEN BTL ONE; +TURMERIC PO; +VITAMIN D PO; +VITAMIN E400 UNI1 PO
== END | disposition home or self-care (01) ==
LOC: OR 09:14
PROVIDERS: ATTEND Internal Medicine Gastroenterology
DX: K59.00 Constipation, unspecified (principal); D12.2 Benign neoplasm of ascending colon; K62.1 Rectal polyp; K57.30 Diverticulosis of large intestine without perforation or abscess without bleeding; K64.8 Other hemorrhoids; K21.9 Gastro-esophageal reflux disease without esophagitis; K28.9 Gastrojejunal ulcer, unspecified as acute or chronic, without hemorrhage or perforation; I44.0 Atrioventricular block, first degree; E78.5 Hyperlipidemia, unspecified; F17.200 Nicotine dependence, unspecified, uncomplicated; Z88.3 Allergy status to other anti-infective agents; Z01.810 Encounter for preprocedural cardiovascular examination; Z01.812 Encounter for preprocedural laboratory examination; Z20.822 Contact with and (suspected) exposure to COVID-19
CPT/HCPCS: 36415 ×2; 45380; 45385; 82948; 85025; 93005; J1980; J2001; J2250; J2704; J3010; U0002